=== PATIENT | male | born 1965 | race Caucasian/White ===

== ENCOUNTER 2022-12-13 14:06 | Emergency (ER) | payer OTHER, SELFPAY ==
[2022-12-13] VITALS (20 sets, daily range): BP systolic 125–155; BP diastolic 82–98; PULSE 57–73; RESP 13–24; TEMP 36.5; O2SAT 96–100
--- NOTE | ~2022-12-13 | XR_ITS ---
EXAMINATION: XR chest 1V INDICATION: Seizure, possible pneumonia TECHNIQUE: AP view of the chest is obtained. COMPARISON: None available FINDINGS: The lungs are free of acute opacities. Calcified pulmonary nodules and calcified bilateral hilar and mediastinal lymph nodes are consistent with old granulomatous disease. No pleural effusion or pneumothorax. The cardiomediastinal silhouette is normal. There is an old healed fracture of the l eft clavicle. IMPRESSION: 1. No acute cardiopulmonary abnormality. Reviewed, dictated and finalized at location B.
--- NOTE | ~2022-12-13 | CT_ITS ---
EXAMINATION: CT brain wo con DATE: 12/13/2022 15:56 INDICATION: Seizure. TECHNIQUE: Computed tomography (CT) of the head was performed without intravenous contrast. Sagittal and coronal reconstructions were performed. The mA was adjusted according to patient size. Iterative reconstruction technique was employed. The dose-length product was 605.33 mGy-cm. COMPARISON: None FINDINGS: No acute intracranial hemorrhage, acute infarction or abnormal extra axial fluid collection. Symmetri c prominence of the sulci and subarachnoid spaces overlying the convexities consistent with mild age- appropriate diffuse cerebral volume loss. Ventricles are normal and symmetric. No mass/mass effect. The orbits, paranasal sinuses and mastoid air cells are normal. IMPRESSION: 1. Normal aging brain. No acute intracranial process. Reviewed, dictated and finalized at location A.
--- NOTE | 2022-12-13 14:11 | ECG_ITS ---
Measurements Intervals [place] Rate: 68 P: 57 NE: 172 QRS: 38 QRSD: 82 T: 48 QT: 356 QTc: 379 Interpretive Statements SINUS RHYTHM CANNOT RULE OUT SEPTAL INFARCT, AGE INDETERMINATE PEAKED T WAVES- CONSIDER HYPERKALEMIA BASELINE ARTIFACT- I, II, III, AVL, AVF ABNORMAL ECG NO PREVIOUS ECG AVAILABLE FOR COMPARISON Electronically Signed On 12-13-2022 14:39:23 CDT by Wilner Morel D.O.
[2022-12-13 14:35] LABS: Basophils Percent Auto 0.5 % (0.2-1.2); Eosinophils Absolute Auto 0.1 K/mm3 (0-0.3); Eosinophils Percent Auto 1.3 % (0-4.4); Hematocrit 43.7 % (42.0-52.0); Hemoglobin 14.8 g/dL (14.0-18.0); Immature Granulocyte Absolute 0.03 K/mm3 (0.00-0.031); Immature Granulocyte Percent A 0.4 % (0-0.5); Lymphocytes Absolute Auto 1.85 K/mm3 (0.9-3.2); Lymphocytes Percent Auto 22.1 % (18.3-44.2); Mean Corpuscular HGB Conc 33.9 g/dl (32-36); Mean Corpuscular Hemoglobin 34.2 pg (26-34); Mean Corpuscular Volume 100.9 fl (80-100); Mean Platelet Volume 8.6 fl (7.4-10.4); Monocytes Absolute Auto 0.8 K/mm3 (0.1-0.6); Monocytes Percent Auto 9.9 % (2.6-8.5); Neutrophils Absolute Auto 5.5 K/mm3 (1.3-6.7); Neutrophils Percent Auto 65.8 % (45.5-73.1); Platelet Count Result 260 k/mm3 (150-375); Red Blood Count 4.33 M/mm3 (4.6-6.20); Red Cell Distribution Width 13.9 % (11.5-14.5); White Blood Count 8.4 K/mm3 (4.5-10.0)
[2022-12-13 14:47] LABS: Alanine Aminotransferase 13 U/L (6-50); Albumin Level 4.2 g/dL (3.5-5.1); Alkaline Phosphatase 68 U/L (38-126); Anion Gap 7 mmol/L (8-16); Aspartate Amino Transferase 22 U/L (17-59); Bilirubin,Total 0.5 mg/dL (0.2-1.3); Blood Urea Nitrogen 12 mg/dL (9-20); Calcium 9.4 mg/dL (8.4-10.2); Carbon Dioxide 27 mmol/L (22-30); Chloride 102 mmol/L (98-107); Estimated CRCL calculation 98 ml/min; Estimated Glomerular Filt Rate > 60; Glucose 98 mg/dL (65-110); Sodium 136 mmol/L (137-145)
--- NOTE | 2022-12-13 15:38 | ED.SEIZURE ---
HPI - Seizure General Chief Complaint: Seizure Stated Complaint: seizure Time Seen by Provider: 12/13/22 14:56 History of Present Illness HPI Narrative: Patient is a 57-year-old male presenting after a seizure. Patient states that the last thing he remembers is standing in a parking lot and feeling off. States that the next thing he remembers is being in the ambulance. States that he has had seizures since childhood but he has not been on antiepileptics for a while due to financial and insurance reasons. States that he has not had a seizure in some time. Cannot remember the last one. States that he moved here this summer and needs to find a new neurologist. Currently, he states that he feels well. States that he feels a bit tired. Denies any pain, focal numbness or weakness, vision changes, recent fevers or chills, chest pain, shortness of breath, cough, abdominal pain, vomiting, diarrhea, leg swelling. Related Data Allergies Allergy/AdvReac Type Severity Reaction Status Date / Time No Known Allergies Allergy Verified 12/13/22 14:12 Review of Systems Review of Systems: All systems reviewed & are unremarkable except as noted in HPI and below PMFSH Social History Social History Smoking packs per day: 1 Smoking cigarettes per day: 20.0 Smoking status: Current every day smoker Tobacco type: cigarettes Alcohol intake: current Alcohol use details: occasionally Exam Narrative: GENERAL: Well-appearing, well-nourished, and in no acute distress. Pleasant and cooperative HEAD: Normocephalic, atraumatic. EYES: PERRLA and EOMI. ENT: Nares clear, no rhinorrhea or epistaxis. Mucous membranes moist. NECK: Supple. CHEST: Clear to auscultation. No respiratory distress. HEART: Regular rate and rhythm ABDOMEN: Soft, nontender, nondistended EXTREMITIES: Normal range of motion. No edema. SKIN: Warm, dry, no rash. NEURO: No focal deficits. Alert and oriented x3. PSYCH: Normal mood and affect. Course Vital Signs Vital signs: Vital Signs Temperature 97.7 F 12/13/22 14:07 Pulse Rate 71 12/13/22 14:07 Respiratory Rate 18 12/13/22 14:07 Blood Pressure 137/84 12/13/22 14:07 Pulse Oximetry 100 12/13/22 14:07 Oxygen Delivery Room Air 12/13/22 14:07 Temperature 97.7 F 12/13/22 14:07 Pulse Rate 64 12/13/22 17:15 Respiratory Rate 17 12/13/22 17:15 Blood Pressure 134/84 12/13/22 17:15 Pulse Oximetry 100 12/13/22 17:15 Oxygen Delivery Room Air 12/13/22 14:13 MDM - Seizure MDM Narrative Medical decision making narrative: Patient is a 57-year-old male presenting with a seizure. Vitals are stable. Exam is unremarkable. Patient states that he has had seizures since he was a child and he has not been on antiepileptics for a long time due to financial and insurance reasons. Currently he denies any complaints. Blood work is unremarkable. CT brain shows no acute abnormalities. Chest x-ray without acute abnormalities. On reevaluation, the patient is resting comfortably. Discussed the reassuring work-up. Unfortunately, we do not have neurology available today. We will start the patient on Keppra 500 mg twice daily and advised very close follow-up with our neurologist as well as primary care. Advise no driving until he is able to follow-up. Patient states that he has not driven for many years due to his seizures. Appropriate return precautions given. Patient voiced understanding and is agreeable with plan. Discharged in stable condition. Differential Diagnosis Differential diagnosis: Likely focal seizure, generalized seizure and epileptic seizure Medical Records Attestation: I reviewed the patient's medical records. Lab Data Attestation: I reviewed the patient's lab results. 12/13/22 14:20 12/13/22 14:20 Labs: Lab Results 12/13/22 12/13/22 Range/Units 14:20 16:15 WBC 8.4 (4.5-
[2022-12-13] MEDS: SODIUM CHLORIDE 0.9% IV 1,000 ML 999 ML IV CONT (16:17)
[2022-12-13 16:29] LABS: Appearance Urine Clear (Clear); Bilirubin Urine Negative (Negative); Blood Urine Negative (Negative); Color Urine Yellow (Yellow); Glucose Urine UA Negative (Negative); Ketones Urine Negative (Negative); Leukocyte Esterase Ur Negative LEU/UL (Negative); Nitrate Urine Negative (Negative); Protein Urine Negative (Negative); Specific Grav Ur 1.019 (1.001-1.035); Urobilinogen Urine 0.2 mg/dL (<2.0)
[2022-12-13 16:33] LABS: Add Urine Microscopic? NO
[2022-12-13 16:49] LABS: Amphetamine Screen Urine Negative (Negative); Barbiturate Screen Urine Negative (Negative); Benzodiazepines Screen Urine Negative (Negative); Cannabinoid Screen Urine Positive (Negative); Cocaine Screen Urine Negative (Negative); Methadone Screen Urine Negative (Negative); Opiate Screen Urine Negative (Negative); Phencyclidine Screen Urine Negative (Negative)
== END 2022-12-13 17:28 | disposition home or self-care (01) ==
PROVIDERS: Emergency Provider Emergency Medicine; PCP Emergency Medicine
DX: R56.9 Unspecified convulsions (principal); F17.210 Nicotine dependence, cigarettes, uncomplicated; R94.31 Abnormal electrocardiogram [ECG] [EKG]
CPT/HCPCS: 36415; 70450; 71045; 80053; 80307; 81003; 85025; 93005; 96360; 99284; J7030

== ENCOUNTER 2023-07-11 14:13 | Emergency (ER) | payer OTHER, SELFPAY ==
[2023-07-11] VITALS (8 sets, daily range): BP systolic 109–129; BP diastolic 71–91; PULSE 70–686; RESP 12–18; TEMP 36.8–37.2; O2SAT 93–100
--- NOTE | 2023-07-11 14:23 | ECG_ITS ---
SEE SCANNED COPY FOR CONFIRMED REPORT MTDD
[2023-07-11 15:22] LABS: Basophils Absolute Auto 0.1 K/mm3 (0.0-0.1); Basophils Percent Auto 0.7 % (0.2-1.2); Eosinophils Absolute Auto 0.1 K/mm3 (0-0.3); Eosinophils Percent Auto 1.3 % (0-4.4); Hematocrit 44.2 % (42.0-52.0); Hemoglobin 15.3 g/dL (14.0-18.0); Immature Granulocyte Absolute 0.04 K/mm3 (0.00-0.031); Immature Granulocyte Percent A 0.5 % (0-0.5); Lymphocytes Absolute Auto 1.03 K/mm3 (0.9-3.2); Lymphocytes Percent Auto 11.8 % (18.3-44.2); Mean Corpuscular HGB Conc 34.6 g/dl (32-36); Mean Corpuscular Hemoglobin 34.3 pg (26-34); Mean Corpuscular Volume 99.1 fl (80-100); Mean Platelet Volume 8.7 fl (7.4-10.4); Monocytes Absolute Auto 0.6 K/mm3 (0.1-0.6); Monocytes Percent Auto 6.7 % (2.6-8.5); Neutrophils Absolute Auto 6.9 K/mm3 (1.3-6.7); Platelet Count Result 192 k/mm3 (150-375); Red Blood Count 4.46 M/mm3 (4.6-6.20); Red Cell Distribution Width 14.5 % (11.5-14.5); White Blood Count 8.7 K/mm3 (4.5-10.0)
[2023-07-11 15:32] LABS: Alanine Aminotransferase 13 U/L (6-50); Albumin Level 4.1 g/dL (3.5-5.1); Alkaline Phosphatase 68 U/L (38-126); Anion Gap 8 mmol/L (4-12); Aspartate Amino Transferase 26 U/L (17-59); Bilirubin,Total 0.6 mg/dL (0.2-1.3); Blood Urea Nitrogen 10 mg/dL (9-20); Calcium 9.2 mg/dL (8.4-10.2); Carbon Dioxide 23 mmol/L (22-30); Chloride 106 mmol/L (98-107); Estimated CRCL calculation 80 ml/min; Estimated Glomerular Filt Rate > 60; Glucose 100 mg/dL (65-110); Potassium 3.9 mmol/L (3.4-5.0); Sodium 137 mmol/L (137-145)
--- NOTE | 2023-07-11 15:43 | ED.SEIZURE ---
HPI - Seizure General Chief Complaint: Seizure Stated Complaint: seizure Time Seen by Provider: 07/11/23 14:58 History of Present Illness HPI Narrative: Pt presents after having two seizures today. Second seizure witnessed by EMS. Pt received Valium 10 mg IM in route. Pt post ictal afterwards but now awake and alert. Pt takes keppra but has not missed any doses. Related Data Allergies Allergy/AdvReac Type Severity Reaction Status Date / Time No Known Allergies Allergy Verified 01/07/23 12:28 Review of Systems Review of Systems: All systems reviewed & are unremarkable except as noted in HPI and below PMFSH Social History Social History Smoking packs per day: 1 Smoking cigarettes per day: 20.0 Smoking status: Current every day smoker Tobacco type: cigarettes Alcohol intake: current Alcohol use details: occasionally Substance use: never Substance use type: does not use Lack of Transportation: No Lack of Food: Never True Current Housing: I Have Housing Concerned About Future Housing: No Difficulty Paying Gas/Electric Bills: No Difficulty Paying for Meds: No Currently Unemployed: No Education: High School Diploma/GED Difficulty w/ Childcare or Family Care: No Exam Const: General: healthy appearing and no acute distress Nutritional Appearance: well nourished Orientation/consciousness: patient oriented x3 Limitations: no limitations HENMT: Head: normal to inspection Eyes: Conjunctivae: conjunctivae normal Pupils: Equal, round and reactive pupils present Neck: Neck: normal visual inspection, no lymphadenopathy and no meningeal signs Resp: Effort & Inspection: normal respiratory effort Auscultation: clear to auscultation bilaterally Cardio: Rate: regular rate Rhythm: regular rhythm GI: Auscultation: normal bowel sounds Skin: General skin exam: normal color Wounds: no wounds Neuro: General: patient oriented x3, moves all extremities, no meningeal signs, no focal motor deficits and CN's II-XI intact bilaterally Cranial nerves: Yes Nystagmus not present Speech: normal speech Extrem: General: normal to inspection and no clubbing, cyanosis or edema Psych: Appearance: grossly normal Mental Status: mental status grossly normal Affect: normal affect Attitude: cooperative Course Vital Signs Vital signs: Vital Signs Temperature 99.0 F 07/11/23 14:09 Pulse Rate 89 07/11/23 14:09 Respiratory Rate 18 07/11/23 14:09 Blood Pressure 116/83 07/11/23 14:09 Pulse Oximetry 93 07/11/23 14:09 Oxygen Delivery Room Air 07/11/23 14:09 Temperature 98.2 F 07/11/23 16:45 Pulse Rate 686 H 07/11/23 16:45 Respiratory Rate 17 07/11/23 16:45 Blood Pressure 129/71 07/11/23 16:45 Pulse Oximetry 100 07/11/23 16:45 Oxygen Delivery Room Air 07/11/23 14:09 MDM - Seizure MDM Narrative Medical decision making narrative: electrolytes fine, pt back to baseline. lonniera is send out. discussed with pt and will call neurologist tomorrow for med adjustment if needed. Lab Data 07/11/23 15:14 07/11/23 15:14 Labs: Lab Results 07/11/23 Range/Units 15:14 WBC 8.7 (4.5-10.0) K/mm3 RBC 4.46 L (4.6-6.20) M/mm3 Hgb 15.3 (14.0-18.0) g/dL Hct 44.2 (42.0-52.0) % MCV 99.1 (80-100) fl MCH 34.3 H (26-34) pg MCHC 34.6 (32-36) g/dl RDW 14.5 (11.5-14.5) % Plt Count 192 (150-375) k/mm3 MPV 8.7 (7.4-10.4) fl Immature Gran % (Auto) 0.5 (0-0.5) % Neut % (Auto) 79.0 H (45.5-73.1) % Lymph % (Auto) 11.8 L (18.3-44.2) % [place] % (Auto) 6.7 (2.6-8.5) % Eos % (Auto) 1.3 (0-4.4) % Baso % (Auto) 0.7 (0.2-1.2) % Lymph # (Auto) 1.03 (0.9-3.2) K/mm3 [place] # (Auto) 0.6 (0.1-0.6) K/mm3 Eos # (Auto) 0.1 (0-0.3) K/mm3 Baso # (Auto) 0.1 (0.0-0.1) K/mm3 Abs Immat Gran (auto) 0.04 H (0.00-0.031) K/mm3 Absolute Neuts (auto) 6.9 H (1.3-6.7
[2023-07-13 09:33] LABS: Levetiracetam Keppra <2.0 mcg/mL (6.0-46.0)
== END 2023-07-11 16:47 | disposition home or self-care (01) ==
PROVIDERS: Emergency Provider Emergency Medicine; PCP Family Medicine
DX: G40.909 Epilepsy, unspecified, not intractable, without status epilepticus (principal); F17.210 Nicotine dependence, cigarettes, uncomplicated
CPT/HCPCS: 36415; 80053; 80177; 85025; 93005; 99284

== ENCOUNTER 2023-08-09 09:55 | Outpatient (CLI) | payer OTHER, SELFPAY ==
--- NOTE | ~2023-08-09 | MR_ITS ---
MRI of the brain Clinical History: Epilepsy Technique: Axial and sagittal T1-weighted images were acquired. These were followed by axial T2-weigh ashley, diffusion weighted, gradient, and FLAIR images. Findings: There is no acute infarct, intracranial hemorrhage, or mass lesion. No significant signal r eality seen in the brain parenchyma. Ventricles and subarachnoid spaces are unremarkable. Orbits are unremarkable. There is minimal mucosa l thickening in the maxillary and sphenoid sinuses. Mastoid air cells are clear. Major intracranial f low voids are intact. Sagittal midline structures are intact. No distinct evidence for mesial temporal sclerosis. IMPRESSION: No significant abnormality seen.. Reviewed, dictated and finalized at location .
== END 2023-08-09 09:56 | disposition home or self-care (01) ==
PROVIDERS: PCP Family Medicine; Visit Provider Psychiatry & Neurology Neurology
DX: G40.909 Epilepsy, unspecified, not intractable, without status epilepticus (principal); Z87.828 Personal history of other (healed) physical injury and trauma
CPT/HCPCS: 70551

== ENCOUNTER 2023-08-11 10:02 | Outpatient (CLI) | payer OTHER, SELFPAY ==
[2023-08-12 18:52] LABS: Red Blood Cell Folate 440 ng/mL RBC (>280)
[2023-08-13 10:08] LABS: Levetiracetam Keppra 22.4 mcg/mL (6.0-46.0)
[2023-08-16 10:29] LABS: Vitamin D 1,25 (OH)2 Total 32 pg/mL (18-72); Vitamin D2 1,25 (OH)2 <8 pg/mL; Vitamin D3 1,25 (OH)2 32 pg/mL
--- NOTE | 2023-08-16 11:55 | P.NEURO_ITS ---
Neurology EEG Report General Information Date of Study: 08/11/23 TEST eeg DIAGNOSIS Epilepsy CONDITION OF RECORDING awake drowsy and sleep EEG NUMBER [id number] CLINICAL HISTORY patient reports he had head injury when he was 5 and he was left with the seizure disorder which is usually well controlled unless he is sleep deprived or does not take his medications on time. EEG DESCRIPTION Basic resting occipital frequency consists oflow voltage 9 to 11 hertz per second alpha admixed with low-voltage 15 to 18 hertz per second beta. Low- voltage beta is seen during drowsiness evolving into bilateral symmetrical sleep spindles. Intermittent low voltage 5 to 7 hertz per 2nd theta activity seen over the left hemispheric linkages Independently.Hyperventilation not done. Photic stimulation produces normal drive. Non paroxysmal. Focal. L ateralizing. IMPRESSION Abnormal record due to presence of intermittent left hemispheric theta activity even though there is no paroxysmal discharge .clinical correlation recommended,as this abnormality could be suggestive of underlying seizure focus.
== END 2023-08-11 10:03 | disposition home or self-care (01) ==
PROVIDERS: PCP Family Medicine; Visit Provider Psychiatry & Neurology Neurology
DX: G40.909 Epilepsy, unspecified, not intractable, without status epilepticus (principal); E55.9 Vitamin D deficiency, unspecified; Z87.828 Personal history of other (healed) physical injury and trauma
CPT/HCPCS: 36415; 80177; 82607; 82652; 82747; 84146; 84443; 95816

== ENCOUNTER 2023-11-02 06:48 | Outpatient (CLI) | payer OTHER, SELFPAY ==
[2023-11-02 07:46] LABS: Basophils Percent Auto 0.6 % (0.2-1.2); Eosinophils Absolute Auto 0.2 K/mm3 (0-0.3); Eosinophils Percent Auto 3.4 % (0-4.4); Hematocrit 45.7 % (42.0-52.0); Hemoglobin 15.7 g/dL (14.0-18.0); Immature Granulocyte Absolute 0.02 K/mm3 (0.00-0.031); Immature Granulocyte Percent A 0.3 % (0-0.5); Lymphocytes Percent Auto 25.4 % (18.3-44.2); Mean Corpuscular HGB Conc 34.4 g/dl (32-36); Mean Corpuscular Hemoglobin 36.3 pg (26-34); Mean Corpuscular Volume 105.5 fl (80-100); Mean Platelet Volume 9.4 fl (7.4-10.4); Monocytes Absolute Auto 0.9 K/mm3 (0.1-0.6); Monocytes Percent Auto 13.1 % (2.6-8.5); Neutrophils Absolute Auto 3.8 K/mm3 (1.3-6.7); Neutrophils Percent Auto 57.2 % (45.5-73.1); Platelet Count Result 172 k/mm3 (150-375); Red Blood Count 4.33 M/mm3 (4.6-6.20); Red Cell Distribution Width 14.1 % (11.5-14.5); White Blood Count 6.7 K/mm3 (4.5-10.0)
[2023-11-02 07:47] LABS: Alanine Aminotransferase 12 U/L (6-50); Alkaline Phosphatase 62 U/L (38-126); Anion Gap 10 mmol/L (4-12); Aspartate Amino Transferase 21 U/L (17-59); Blood Urea Nitrogen 6 mg/dL (9-20); Calcium 8.9 mg/dL (8.4-10.2); Carbon Dioxide 27 mmol/L (22-30); Chloride 99 mmol/L (98-107); Cholesterol 173 mg/dL (0-200); Estimated Glomerular Filt Rate > 60; Glucose 91 mg/dL (65-110); HDL Direct 84 mg/dL; Potassium 3.7 mmol/L (3.4-5.0); Sodium 136 mmol/L (137-145); Triglycerides 71 mg/dL (<150)
[2023-11-02 07:58] LABS: LDL Cholesterol Direct 69 mg/dL
[2023-11-02 08:17] LABS: Prostate Specific Antigen 0.8 ng/mL (< OR = 4.0)
== END 2023-11-02 06:49 | disposition home or self-care (01) ==
LOC: ANHLAB 06:51
PROVIDERS: PCP Family Medicine; Visit Provider Registered Nurse
DX: Z12.5 Encounter for screening for malignant neoplasm of prostate (principal); E78.5 Hyperlipidemia, unspecified
CPT/HCPCS: 36415; 80053; 80061; 84153; 85025; G0103

== ENCOUNTER 2024-09-14 06:53 | Outpatient (CLI) | payer OTHER, SELFPAY ==
[2024-09-14 08:04] LABS: Magnesium 1.9 mg/dL (1.6-2.3)
[2024-09-17 14:58] LABS: Levetiracetam Keppra. 39.1 mcg/mL (6.0-46.0)
[2024-09-17 17:18] LABS: Vitamin B1. <6 nmol/L (8-30)
[2024-09-17 18:53] LABS: Red Blood Cell Folate 359 ng/mL RBC (>280)
[2024-09-18 10:43] LABS: Vitamin D 1,25 (OH)2 Total 35 pg/mL (18-72); Vitamin D2 1,25 (OH)2 <8 pg/mL; Vitamin D3 1,25 (OH)2 35 pg/mL
[2024-09-18 20:14] LABS: Methylmalonic Acid. 56 nmol/L (69-390)
== END 2024-09-14 06:54 | disposition home or self-care (01) ==
LOC: ANHLAB 06:55
PROVIDERS: PCP Family Medicine; Visit Provider Psychiatry & Neurology Neurology
DX: G40.909 Epilepsy, unspecified, not intractable, without status epilepticus (principal); E53.8 Deficiency of other specified B group vitamins; E55.9 Vitamin D deficiency, unspecified
CPT/HCPCS: 36415; 80177; 82607; 82652; 82747; 83735; 83921; 84425

== ENCOUNTER 2024-10-23 07:53 | Outpatient (CLI) | payer OTHER, SELFPAY ==
[2024-10-23 08:40] LABS: Hematocrit 42.7 % (42.0-52.0); Hemoglobin 15.0 g/dL (14.0-18.0); Immature Granulocyte Percent A 0.4 % (0-0.5); Lymphocytes Absolute Auto 1.17 K/mm3 (0.9-3.2); Mean Corpuscular HGB Conc 35.1 g/dl (32-36); Mean Corpuscular Hemoglobin 34.7 pg (26-34); Mean Corpuscular Volume 98.8 fl (80-100); Nucleated Red Blood Cells Absolute Auto 0.000 K/mm3 (0.0-0.012); Nucleated Red Blood Cells Perc 0.0 % (0.0-0.2); Platelet Count Result 211 k/mm3 (150-375); Red Blood Count 4.32 M/mm3 (4.6-6.20); White Blood Count 5.0 K/mm3 (4.5-10.0)
[2024-10-23 09:08] LABS: Alanine Aminotransferase 18 U/L (6-50); Albumin Level 4.4 g/dL (3.5-5.1); Alkaline Phosphatase 57 U/L (38-126); Anion Gap 12 mmol/L (4-12); Aspartate Amino Transferase 46 U/L (17-59); Bilirubin,Total 0.7 mg/dL (0.2-1.3); Blood Urea Nitrogen 7 mg/dL (9-20); Calcium 9.2 mg/dL (8.4-10.2); Carbon Dioxide 23 mmol/L (22-30); Chloride 102 mmol/L (98-107); Cholesterol 252 mg/dL (0-200); Estimated Glomerular Filt Rate > 60; Glucose 76 mg/dL (65-110); Potassium 3.7 mmol/L (3.4-5.0); Sodium 137 mmol/L (137-145); Total Protein 7.3 g/dL (6.3-8.2); Triglycerides 88 mg/dL (<150)
[2024-10-23 10:09] LABS: HDL Direct 125 mg/dL
[2024-10-23 10:16] LABS: Prostate Specific Antigen 0.9 ng/mL (< OR = 4.0)
== END 2024-10-23 07:54 | disposition home or self-care (01) ==
LOC: ANHLAB 07:55
PROVIDERS: PCP Family Medicine; Visit Provider Registered Nurse
DX: E78.5 Hyperlipidemia, unspecified (principal); Z12.5 Encounter for screening for malignant neoplasm of prostate; Z11.59 Encounter for screening for other viral diseases
CPT/HCPCS: 36415; 80053; 80061; 84153; 85025; 86803

== ENCOUNTER 2025-02-28 00:34 | Day surgery (SDC) | payer OTHER, SELFPAY ==
[2025-02-08 09:18] VITALS: BMI 21.5
[2025-02-28 08:15] VITALS: BP 134/90; PULSE 72; RESP 20; O2SAT 100
[2025-02-28 08:19] VITALS: BMI 19.0
[2025-02-28] MEDS: LACTATED RINGERS 1,000 ML 150 ML IV CONT (08:21)
--- NOTE | 2025-02-28 09:04 | P.HP_ITS ---
H&P: HPI History of Present Illness Date/Time: 02/28/25 09:04 Chief Complaint: Family history of colon cancer Narrative: This is the patient's first colonoscopy. There are no GI symptoms . His half brother had a history of colorectal cancer in his 50s. Apparently he was told that his Cologuard test was positive but not in this institution. Review of Systems Review of Systems: All systems reviewed & are unremarkable except as noted in HPI and below PMFSH Past Medical History Medical History (Updated 02/28/25 @ 09:06 by Lionel Presley MD) Vitamin B1 deficiency Vitamin B12 deficiency Social History Social History Social History: Caffeine-soda Smoking packs per day: 1 Smoking cigarettes per day: 20.0 Years smoked: 40 Smoking pack-years: 40.00 Smoking status: Current every day smoker Tobacco type: cigarettes Alcohol intake: current Drinks per week: 14 Alcohol use details: occasionally Substance use: never Substance use type: does not use Lack of Transportation: No Lack of Food: Never True Current Housing: I Have Housing Concerned About Future Housing: No Difficulty Paying Gas/Electric Bills: No Difficulty Paying for Meds: No Currently Unemployed: No Education: High School Diploma/GED Difficulty w/ Childcare or Family Care: No Living arrangements: alone Meds Home Medications and Allergies Home Medications ?Medication ?Instructions ?Recorded ?Confirmed ?Type levetiracetam 500 mg 1,500 mg (3 x 500 mg) PO ABBEY LY 10/23/24 02/28/25 Rx tablet,extended release 24 hr #300 tabs (Keppra XR) thiamine HCl (vitamin B1) 100 mg 100 mg PO DAILY #90 c aps 10/23/24 02/28/25 Rx capsule Allergies Allergy/AdvReac Type Severity Reaction Status Date / Time No Known Allergies Allergy Verified 02/28/25 08:18 Exam Const: General: cooperative and healthy appearing Resp: Effort & Inspection: normal respiratory effort and able to speak in complete sentences Auscultation: clear to auscultation bilaterally Cardio: Rate: regular rate Rhythm: regular rhythm GI: Inspection: normal to inspection GI Palp: No No hepatosplenomegaly present Auscultation: normal bowel sounds Rectal Exam: deferred Skin: General skin exam: normal color Psych: Appearance: grossly normal Mental Status: mental status grossly normal Assessment and Plan Assessment and plan (1) Family history of colon cancer: Code(s): Z80.0 - Family history of malignant neoplasm of digestive organs Status: Acute Assessment and Plan: The patient is deemed a good candidate for the procedure. Consent signed. Will proceed. Prior Studies I have reviewed the following patient records and this information was taken into consideration when formulating the assessment and plan.: previous labs, previous ER visits, previous hospitalizations and previous clinic visits
--- NOTE | 2025-02-28 09:47 | P.PNAN_ITS ---
Anes - Initial Pre Proc Eval Procedure: Operation Date: 02/28/25 09:30 Proposed Procedures p Screening Colonoscopy - Lionel Presley MD Date/Time: 02/28/25 09:47 Surgeon: Lionel Presley MD Pre Op Diagnosis: +Cologuard/screening Patient Data Age: 59 Gender: M Height: 1.78 m Weight: 60.1 kg Allergies Allergy/AdvReac Type Severity Reaction Status Date / Time No Known Allergies Allergy Verified 02/28/25 08:18 Home Medications ?Medication ?Instructions ?Recorded ?Confirmed ?Type levetiracetam 500 mg 1,500 mg (3 x 500 mg) PO ABBEY LY 10/23/24 02/28/25 Rx tablet,extended release 24 hr #300 tabs (Keppra XR) thiamine HCl (vitamin B1) 100 mg 100 mg PO DAILY #90 c aps 10/23/24 02/28/25 Rx capsule Patient hx anesthesia problems: none Family hx anesthesia problems: none Results Review: All pre-operative results and documents have been reviewed as part of the pre- operative evaluation. PENDING SALE TO [facility] Past Medical History Medical History Vitamin B1 deficiency Vitamin B12 deficiency Social History Social History Social History: Caffeine-soda Smoking packs per day: 1 Smoking cigarettes per day: 20.0 Years smoked: 40 Smoking pack-years: 40.00 Smoking status: Current every day smoker Tobacco type: cigarettes Alcohol intake: current Drinks per week: 14 Alcohol use details: occasionally Substance use: never Substance use type: does not use Lack of Transportation: No Lack of Food: Never True Current Housing: I Have Housing Concerned About Future Housing: No Difficulty Paying Gas/Electric Bills: No Difficulty Paying for Meds: No Currently Unemployed: No Education: High School Diploma/GED Difficulty w/ Childcare or Family Care: No Living arrangements: alone Anes - Eval Final PreProcedure Day of Procedure 02/28/25 09:47 Patient weight: normal Heart: regular rate and rhythm Lungs: decreased breath sounds Airway: Mallampati scale class II Neurological: alert and oriented Last oral intake: >/= 8 hours ASA classification: III Emergent: no Anesthetic plan: proceed Anesthesia type and monitoring: general GIVS and standard monitoring Results Review: All pre-operative results and documents have been reviewed as part of the pre-operative evaluation. Informed Consent: The patient's anesthetic plan and its attendant risks and benefits were discussed with the patient/family/POA. Questions were solicited and answers provided to the satisfaction of the patient/family/POA.
[2025-02-28] MEDS: EPINEPHrine INJ 1 MG/10 ML SYRINGE XX ×3 (10:00→10:34)
[2025-02-28 10:58] VITALS: BP 155/96; PULSE 58; RESP 18; O2SAT 100
--- NOTE | 2025-02-28 10:58 | S_PTH ---
PATIENT: Lenard Avila LOC: [facility] #:[id number] AGE/SX: 59/M ROOM: RE02/28/[address]: Lionel Presley MD : 1965 BED: DIS: 02/28/2025 SPEC #: [id number] RECD: 02/28/25 11:29 STATUS: DAVY REJesús #: [id number] RITA: 02/28/25 10:[address]: Lionel Presley DEPT: [facility] Surgical RECD BY: Vicki Garcia ENTERED: 02/28/25 11:31 SP TYPE: Surgical OTHR DR: Salvador Pacheco MD Tissues: A - Colon Polypectomy B - Colon Polypectomy C - Colon Polypectomy D - Colon Polypectomy E - Colon Polypectomy F - Colon Polypectomy Procedures: Hematoxylin and Eosin Stain Gross and Microscopic Level 4
[2025-02-28 11:08] VITALS: BP 142/97; PULSE 54; RESP 18; O2SAT 100
[2025-02-28 11:18] VITALS: BP 141/92; PULSE 52; RESP 19; O2SAT 100
== END 2025-02-28 11:37 | disposition home or self-care (01) ==
PROVIDERS: PCP Family Medicine; Referring Provider Family Medicine; Visit Provider Internal Medicine Gastroenterology
PROC: 0DJD8ZZ Inspection of Lower Intestinal Tract, Via Natural or Artificial Opening Endoscopic (ICD-10-PCS; CPT 45378; principal; 2025-02-28 09:30)
DX: Z12.11 Encounter for screening for malignant neoplasm of colon (principal); D12.4 Benign neoplasm of descending colon; D12.5 Benign neoplasm of sigmoid colon; D12.2 Benign neoplasm of ascending colon; D12.7 Benign neoplasm of rectosigmoid junction; K63.5 Polyp of colon; Z80.0 Family history of malignant neoplasm of digestive organs; F17.210 Nicotine dependence, cigarettes, uncomplicated
CPT/HCPCS: 45381; 45385; 88305; J0168; J2704; J7120